=== PATIENT | male | born 1980 | race Caucasian/White ===

== ENCOUNTER 2017-08-23 01:32 | Emergency (ER) | payer BC ==
[~2017-08-23] VITALS: Ht 180.3 cm; Wt 110.8 kg
[~2017-08-23 01:32] MED LIST: BENTYL20 MG PO; FLAGYL500 MG PO; LORTAB 5-325 M1 EACH PO; NOHOMEMEDS; ZOFRAN ODT8 MG PO
[2017-08-23 01:56] LABS: HEMATOCRIT 44.6 % (38.0-50.0); HEMOGLOBIN 15.1 G/DL (12.5-16.6); MCH 27.8 PG (29.0-34.0); MCHC 33.9 G/DL (30.0-36.0); MCV 82.1 FL (86-99); PLATELET COUNT 213 K/uL (156-360); RBC DIS.WIDTH-CV 12.6 % (11.8-14.6); RBC DIS.WIDTH-SD 37.6 % (39-53); RED BLOOD COUNT 5.43 M/uL (4.00-5.50); WHITE BLOOD COUNT 6.9 K/uL (4.1-10.2)
[2017-08-23 03:07] LABS: CHLORIDE 106 mEq/L (99-109); SODIUM 140 mEq/L (136-147)
[2017-08-23 03:10] LABS: GLUCOSE 169 mg/dL (70-99)
[2017-08-23 03:13] LABS: CREATININE 0.8 mg/dL (0.6-1.3); GFR ESTIMATE (CALCULATED) > 59 mL/min/ (58.99-99999)
[2017-08-23 03:14] LABS: ALBUMIN 4.3 g/dL (3.2-4.8); UREA NITROGEN (BUN) 10 mg/dL (9-23)
[2017-08-23 03:17] LABS: TOTAL PROTEIN 7.1 g/dL (6.4-8.3)
[2017-08-23 03:18] LABS: TOTAL BILIRUBIN 0.3 mg/dL (0.0-1.0); TROP-I INTERPRETATION NEGATIVE; TROPONIN-I < 0.01 ng/mL (0.0-0.30)
[2017-08-23 03:19] LABS: ALKALINE PHOSPHATASE 73 IU/L (3-129)
[2017-08-23 03:22] LABS: AST (GOT) 27 IU/L (2-34); DIRECT BILIRUBIN 0.1 mg/dL (0.0-0.3)
[2017-08-23 03:23] LABS: ALT (GPT) 57 IU/L (3-49); LIPASE 18 U/L (1.0-51.0)
[2017-08-23 06:07] VITALS: BP 100/62
== END 2017-08-23 06:08 | disposition home or self-care (01) ==
LOC: EME 01:32
DX: M79.1 Myalgia (principal); R00.0 Tachycardia, unspecified; T40.7X5A Adverse effect of cannabis (derivatives), initial encounter; E87.6 Hypokalemia; F17.200 Nicotine dependence, unspecified, uncomplicated
CPT/HCPCS: 71046; 80048; 80076; 83690; 84484; 85027; 93005; 99281; 99284; J2060; J3475; J7030